=== PATIENT | male | born 1945 | race Caucasian/White ===

== ENCOUNTER 2017-07-27 06:54 | Day surgery (SDC) | payer MEDICARE, OTHER ==
[~2017-07-27 06:54] MED LIST: LACTATED RINGERS 1,000 ML IV SCH; LIDOCAINE 1% 20 ML VIAL (10MG/ML) FOR IV START INTRADERMA PRN
[2017-07-27 07:44] VITALS: TEMP 97.6
[2017-07-27] MEDS ORDERED: PHENYLEPHRINE-0.9% NACL SYG 1 MG/10 ML SYRINGE ONE (07:56)
[2017-07-27] MEDS ORDERED: PROPOFOL 10 MG/ML 20 ML VIAL IV ONE (07:56)
[2017-07-27] MEDS ORDERED: LIDOCAINE 1% INJ 10MG/ML (20 ML MDV) ONE (07:56)
[2017-07-27 08:55] VITALS: RESP 16
--- NOTE | 2017-07-27 08:56 | P.PCN ---
Date of Procedure: 07/27/17 Procedure(s) Performed: BRIEF HISTORY: Patient is a 72-year-old pleasant white male, scheduled for an elective colonoscopy as a part of screening for colon neoplasia. His last colonoscopy was 8 years ago. PROCEDURE PERFORMED: Colonoscopy with snare polypectomy/tattooing with Melanie ink.. PREOPERATIVE DIAGNOSIS: Screening for colon cancer. IV sedation per Anesthesia. PROCEDURE: After informed consent was obtained, the patient, was brought into the endoscopy unit. IV sedation was administered by Anesthesia under continuous monitoring. Digital rectal examination was normal. Initially the Olympus CF- 160 flexible video colonoscope was then inserted in the rectum, gradually advanced into the cecum without any difficulty. Careful examination was performed as the scope was gradually being withdrawn. Ileocecal valve and the appendiceal orifice were visualized and appeared normal. Prep was excellent. In the base of the cecum there was a 3 polyps each measuring 1-1.5 cm in size removed by snare polypectomy. In the ascending colon there was 3 centimeter area with multiple small confluent polyps were removed by snare polypectomy. In the hepatic flexure there were 2 polyps measuring 2.5 cm and 2 cm in size both of which were broad-based and had multiple small confluent polyps which was removed by piecemeal snare polypectomy. One of the polyp was could not be removed completely, hence it was injected with the Melanie ink to localize in the future. In the descending colon there was a 1 cm polyp removed by snare polypectomy. The rest of the descending colon, sigmoid colon, and rectum appeared normal. Retroflexion was performed in the rectum and no lesions were seen. The patient tolerated the procedure well. IMPRESSION: 1 cm 3 cecal polyps status post polypectomy 3 cm area with multiple small confluent polyps noted in the ascending colon status post piecemeal snare polypectomy 3 cm linear broad-based polyp in the hepatic flexure status post polypectomy 2-3 cm area with multiple small conflueent polyps in the hepatic flexure status post polypectomy followed by tattooing with Melanie ink 1 cm descending colon polyp status post polypectomy RECOMMENDATIONS: Findings of this examination were discussed with the patient as well as his family. He was advised to follow with the biopsy results. Based the biopsy results will plan a repeat colonoscopy in 3-6 months..
[2017-07-27 09:10] VITALS: BP 133/73; PULSE 51
== END 2017-07-27 09:56 | disposition home or self-care (01) ==
LOC: ORWHC2ENDO 06:54
PROVIDERS: ATTEND Internal Medicine Gastroenterology
DX: Z12.11 Encounter for screening for malignant neoplasm of colon (principal); D12.2 Benign neoplasm of ascending colon; D12.0 Benign neoplasm of cecum; D12.4 Benign neoplasm of descending colon; D12.3 Benign neoplasm of transverse colon; I10 Essential (primary) hypertension; E78.5 Hyperlipidemia, unspecified; K21.9 Gastro-esophageal reflux disease without esophagitis; Z86.718 Personal history of other venous thrombosis and embolism; Z86.711 Personal history of pulmonary embolism; Z87.891 Personal history of nicotine dependence; Z79.891 Long term (current) use of opiate analgesic; Z79.899 Other long term (current) drug therapy
CPT/HCPCS: 88305; 45385; 45381; J2001; J2370; J2704